=== PATIENT | female | born 1960 | race American Indian/Alaskan Native ===

== ENCOUNTER 2017-03-03 09:19 | Outpatient (CLI) | payer OTHER ==
[2017-03-03] MEDS ORDERED: XYLOCAINE TOPICAL 4% TP ONE ×2 (10:39→15:22)
[2017-03-03] MEDS ORDERED: XYLOCAINE 1%/ EPI 1:100,000 INFILTRATI ONE (11:05)
[2017-03-03] MEDS ORDERED: XYLOCAINE 1%/ EPI 1:100,000 INFILTRATI NR (16:00)
== END 2017-03-03 09:20 | disposition home or self-care (01) ==
LOC: WOUND 09:19
PROVIDERS: ATTEND Surgery
DX: S71.101A Unspecified open wound, right thigh, initial encounter (principal); M72.6 Necrotizing fasciitis; X58.XXXA Exposure to other specified factors, initial encounter; Y93.89 Activity, other specified; Y92.89 Other specified places as the place of occurrence of the external cause; Y99.8 Other external cause status
CPT/HCPCS: 97606; G0463